=== PATIENT | female | born 1985 | race Caucasian/White ===

== ENCOUNTER 2016-09-21 11:36 | Observation (INO) | payer BC ==
[2016-09-21 12:35] LABS: Appearance,Urine Clear (Clear); Bacteria,Urine Rare /hpf; Bilirubin,Urine Negative (Negative); Glucose,Urine (UA) Negative (Negative); Ketones,Urine Negative (Negative); Leukocyte Esterase,Urine Small (Negative); Nitrite,Urine Negative (Negative); Particle Count 1184; Protein,Urine Negative (Negative); RBC,Urine <1 /hpf (0-5); Specific Gravity,Urine 1.004 (1.001-1.035); Squamous Epithelial Cell,Urine 1 /hpf (0-4); UA Billing (MACRO vs. MICRO) MICRO; Urobilinogen,Urine <2.0 mg/dL (<2.0); WBC,Urine 2 /hpf (0-5)
[2016-09-21] MEDS ORDERED: BETAMET ACET-BETAMETH SOD PHOS 6 MG/ML VIAL IM SCH (13:15)
[2016-09-21] MEDS ORDERED: LACTATED RINGERS 1,000 ML IV ONE (13:30)
[2016-09-21] MEDS ORDERED: LACTATED RINGERS 1,000 ML IV SCH (13:30)
[2016-09-21] MEDS ORDERED: MAGNESIUM SULFATE-WATER PMX 4 GM in WATER FOR INJECTION 50 50ML.BAG IVPB ONE (14:56)
[2016-09-21] MEDS ORDERED: CALCIUM GLUCONATE 100 MG/ML 10 ML VIAL IV ONE (14:56)
[2016-09-21] MEDS ORDERED: MAGNESIUM SULFATE-D5W PMX 1 GM in DEXTROSE/WATER 1 100ML.BAG IVPB SCH (15:00)
[2016-09-21 15:21] LABS: Basophils % (A) 0 %; CH 34.7; CHCM 35.9; Eosinophils # (A) 0.1 k/uL (0-0.7); Eosinophils % (A) 0 %; HCT 38.7 % (34.0-46.0); HDW 2.79; HGB 12.9 gm/dL (11.4-16.0); Luc # (Auto) 0.21; Luc % (Auto) 1; Lymphocytes # (A) 1.5 k/uL (1.0-4.8); Lymphocytes % (A) 10 %; MCH 32.3 pg (25.0-35.0); MCHC 33.2 g/dL (31.0-37.0); MCV 97.3 fL (80.0-100.0); Monocytes # (A) 0.7 k/uL (0-1.0); Monocytes % (A) 5 %; Neutrophils # (A) 12.9 k/uL (1.3-7.7); Neutrophils % (A) 84 %; RBC 3.98 m/uL (3.80-5.40); RDW 13.8 % (11.5-15.5); WBC 15.4 k/uL (3.8-10.6); WBC (Perox) 16.21
[2016-09-21] MEDS: MAGNESIUM SULFATE-WATER PMX 20 GM in WATER FOR INJECTION 1 500ML.BAG IV SCH ×2 (15:27→22:41)
[2016-09-21 16:53] VITALS: BMI 25.2
[2016-09-21] MEDS ORDERED: ACETAMINOPHEN TAB 325 MG TAB PO PRN (22:00)
[2016-09-21] MEDS ORDERED: ONDANSETRON 4 MG/2 ML VIAL IVP STA (22:22)
[2016-09-21] MEDS ORDERED: CLINDAMYCIN 600 MG in DEXTROSE 5% IN WATER 50 ML IVPB STA ×2 (22:29)
[2016-09-21 22:42] VITALS: BP 98/59; PULSE 73; RESP 15; TEMP 96.9
--- NOTE | 2016-09-21 22:48 | P.HPOB ---
History of Present Illness H&P Date: 09/21/16 Chief Complaint: Interim 32 weeks: labor Patient is a 31-year-old at 32 weeks gestation who began having pains in her left side earlier today. At that time she was advised to come up to labor and delivery where she was noted to be macey. Despite oral hydration she continued to contract a fibrin acting was done revealing a positive result. At that point due to her contractions she was given a dose of Celestone to help with his lung maturity and was admitted for observation. A short time later despite hydration she continued to contract contractions were every 2-3 minutes therefore a 4 g bolus of magnesium sulfate was ordered and 2 g per hour was divided as a maintenance dose. 4 about an hour to an hour and half this seemed to diminish the contractions she felt much better and we continue to observe her. However shortly thereafter after she began moving around and she got up and went to the restroom she continued to have contractions again and a began to get stronger we did increase magnesium sulfate to 3 g per hour at that time and can find her to the bed with SCDs. As well as a Avelar catheter for urine output. Her urine output has remained good throughout this process. At approximately 10:15 she reports that she rolled over onto her back and the contractions began to get very severe again every 2 minutes and then they became what she felt was constant just on the left-hand side. I did do another exam she was at this point dilated to 1/2 cm 80% effaced and -1 station. While this is a small change or report was performed with the fact that she is macey so regularly at this point and this is in spite of the fact that her magnesium sulfate was at 3 g an hour we decided to transfer her to [facility]-risk center. In speaking with the doctors at [facility] they've advised at this time to provide antibiotics for GBS prophylaxis but we may discontinue the mag sulfate. Shortly after discontinuing the mag sulfate patient became nauseous and began throwing up at which time I believe she had a vagal episode with her blood pressure dropping to 70s over 50s what she was laid flat and within a minute or 2 of that she began to recover and her blood pressure did come back up into the 100s over 60s. I was at bedside throughout this process. Blow-by O2 was provided as precaution however she was saturating at 100%. heart tones have remained in the 120s. There is some decreased variability secondary to the maybe these implants sulfate. On physical exam her vital signs have been stable and she is afebrile. Her heart has been regular, lungs are clear, extremities without pain. She shows no overt signs of shortness of breath. We have held her fluids to very low volume with a make sulfate although we have given a little bit of increased mouth magnesium sulfate has been discontinued with her blood pressure having dropped. We'll drop that back as well shortly. Assessment interim at 32 weeks: labor. Plan transfer of care to [facility] Past Medical History Past Medical History: Cancer Additional Past Medical History / Comment(s): CONSTIPATION-BM Q 2-3 DAYS, GRANDFATHER COLON CA History of Any Multi-Drug Resistant Organisms: None Reported Additional Past Surgical History / Comment(s): BREAST AUGMENTATION Past Anesthesia/Blood Transfusion Reactions: No Reported Reaction Past Psychological History: No Psychological Hx Reported Smoking Status: Never smoker Past Alcohol Use History: None Reported Past Drug Use History: None Reported - Past Family History Mother Family Medical History: No Reported History Medications and Allergies Home Medications Medication Instructions Recorded Confirmed Type Pnv with Ca,No.72/Iron/FA 1 each PO DAILY 07/13/16 09/21/16 History [ Plus Tablet] Allergies Allergy/AdvReac Type Severity Reaction Status Date / Time fexofenadine HCl Allergy GENERALZED Verified 09/21/16 11:53 [From Sudha] TINGLING latex Allergy Rash/Hives Verified 09/21/16 11:53 loratadine [From Claritin] Allergy GENERALIZED Verified 09/21/16 11:53 TINGLING POSSIBLE AMOXICILLIN Allergy Unknown Uncoded 09/21/16 11:53 Childhood Exam Osteopathic Statement: *. No significant issues noted on an osteopathic structural exam other than those noted in the History and Physical/Consult. - Vital Signs Vital signs: Vital Signs Temp Pulse Resp BP Pulse Ox 09/21/16 22:41 96.9 F L 73 15 98/59 100 09/21/16 20:00 104/65 09/21/16 16:37 98.3 F 84 16 104/63 Intake and Output 09/21/16 09/21/16 09/21/16 06:59 14:59 22:59 Intake Total 1300 Output Total 1450 Balance -150 Intake: Intake, IV Titration 1050 Amount Lactated Ringers 1,000 ml 1000 @ 999 mls/hr IV .Q1H1M ONE Rx#:[id number] Magnesium Sulfate-Water 50 Pmx 4 gm In Water For Injection 50 50ml.bag @ 150 mls/hr IVPB ONCE ONE Rx#:[id number] Oral 250 Output: Urine 1450 Other: # Voids 1 Weight 62.596 kg 62.596 kg Patient Weight 09/22/16 06:59 Weight 62.596 kg - OBG Physical Exam Breast: both: normal (no masses) Abdomen: bowel sounds normal, no diffuse tenderness, no bruit present, no guarding noted, no hepatomegaly, no splenomegaly, no mass Vulva: both: normal Vagina: normal moisture, no discharge Cervix: no lesion, no discharge Uterus: normal size, normal contour Adnexa: both: normal Anus/Rectum: normal perianal skin, no rectal mass, no hemorrhoids, heme negative Results Result Diagrams: 09/21/16 13:35 Abnormal Lab Results - Last 24 Hours (Table) 09/21/16 09/21/16 Range/Units 12:25 13:35 WBC 15.4 H (3.8-10.6) k/uL Neutrophils # 12.9 H (1.3-7.7) k/uL Ur Leukocyte Esterase Small H (Negative) Urine Bacteria Rare H (None) /hpf
== END 2016-09-21 23:50 | disposition short-term general hospital (02) ==
LOC: FBPOP 11:36 → 4FBP 16:26
PROVIDERS: ADMIT Obstetrics & Gynecology; ATTEND Obstetrics & Gynecology
DX: O60.03 Preterm labor without delivery, third trimester (principal); Z3A.32 32 weeks gestation of pregnancy; Z88.8 Allergy status to other drugs, medicaments and biological substances
CPT/HCPCS: 59025; 99215; 96361; 96365; 96372; 84112; 82731; 83735; 85025; 81001; G0378; J0702; J3475 ×2; J2405; 96375

== ENCOUNTER 2016-10-29 11:36 | Outpatient (CLI) | payer BC ==
[2016-10-29 12:26] LABS: Amorphous Sediment,Urine Rare /hpf; Appearance,Urine Cloudy (Clear); Bacteria,Urine Rare /hpf; Bilirubin,Urine Negative (Negative); Glucose,Urine (UA) Negative (Negative); Ketones,Urine Negative (Negative); Leukocyte Esterase,Urine Small (Negative); Mucus,Urine Moderate /hpf; Nitrite,Urine Negative (Negative); PH, Urine 6.5 (5.0-8.0); Particle Count 7058; Protein,Urine 1+ (Negative); RBC,Urine 2 /hpf (0-5); Specific Gravity,Urine 1.016 (1.001-1.035); Squamous Epithelial Cell,Urine 6 /hpf (0-4); UA Billing (MACRO vs. MICRO) MICRO; Urobilinogen,Urine <2.0 mg/dL (<2.0); WBC,Urine 14 /hpf (0-5)
== END 2016-10-29 12:39 | disposition home or self-care (01) ==
LOC: FBPOP 11:36
PROVIDERS: ATTEND Obstetrics & Gynecology
DX: O99.89 Other specified diseases and conditions complicating pregnancy, childbirth and the puerperium (principal); R35.0 Frequency of micturition; R39.15 Urgency of urination; Z3A.37 37 weeks gestation of pregnancy
CPT/HCPCS: 59025; 81001; 87086; 99213

== ENCOUNTER 2016-10-30 11:13 | Outpatient (CLI) | payer BC | END 2016-10-30 12:31 | disposition home or self-care (01) | LOC: FBPOP 11:13 | PROVIDERS: ATTEND Obstetrics & Gynecology | DX: O42.92 Full-term premature rupture of membranes, unspecified as to length of time between rupture and onset of labor (principal); R60.0 Localized edema; Z3A.37 37 weeks gestation of pregnancy | CPT/HCPCS: 59025; 84112; 99213 ==

== ENCOUNTER 2016-11-06 11:22 | Inpatient (IN) | payer BC ==
[2016-11-06] MEDS ORDERED: OXYTOCIN 10 UNIT/ML 1 ML VIAL IM PRN (12:15)
[2016-11-06] MEDS ORDERED: TERBUTALINE 1 MG/ML VIAL SQ PRN (12:15)
[2016-11-06] MEDS ORDERED: LACTATED RINGERS 1,000 ML IV SCH (12:15)
[2016-11-06] MEDS ORDERED: METHYLERGONOVINE 0.2 MG/ML 1 ML AMP IM PRN (12:15)
[2016-11-06] MEDS ORDERED: CARBOPROST TROMETHAMINE 250 MCG/ML 1 ML AMP IM PRN (12:15)
[2016-11-06] MEDS ORDERED: LIDOCAINE 1% (PF) 10 MG/ML (30 ML SDV) SQ PRN (12:15)
[2016-11-06 12:38] LABS: Appearance,Urine Cloudy (Clear); Bilirubin,Urine Negative (Negative); Glucose,Urine (UA) Negative (Negative); Ketones,Urine Negative (Negative); Leukocyte Esterase,Urine Large (Negative); Mucus,Urine Rare /hpf; Nitrite,Urine Negative (Negative); Particle Count 3590; Protein,Urine 1+ (Negative); RBC,Urine 7 /hpf (0-5); Specific Gravity,Urine 1.013 (1.001-1.035); Squamous Epithelial Cell,Urine 7 /hpf (0-4); UA Billing (MACRO vs. MICRO) MICRO; Urobilinogen,Urine <2.0 mg/dL (<2.0); WBC,Urine 43 /hpf (0-5)
[2016-11-06 12:51] VITALS: BMI 29.4
--- NOTE | 2016-11-06 12:55 | P.HPOB ---
History of Present Illness H&P Date: 11/06/16 Chief Complaint: Elevated blood pressure and pain This patient is a pleasant 31-year-old 1 para 0 female estimated date of confinement 11/16/2016 estimated gestational age 38-4/7 weeks gestation who is admitted to labor and delivery with complaints of elevated blood pressure work this morning and also some pelvic pressure. Patient's care is complicated by labor, she was transferred to [facility] at 32 weeks dilated 2 cm dilated with a positive fibronectin. Patient was watched on bed rest until approximately 36 weeks. Patient also has developed some significant lower extremity edema over the last several weeks however her blood pressures have been normal in the office 110-114/60 to 70s. Patient states that this morning at work her first blood pressure was elevated at 130s over 87. She subsequently presented to labor and delivery for evaluation and is found to be in early labor with elevated blood pressure 159/99 and 145/92. Patient's care is also been complicated by marginal cord insertion and she's had normal growth ultrasounds including ultrasounds by maternal medicine. Review of Systems Constitutional: Denies chills, Denies fever Ears, nose, mouth and throat: Denies headache, Denies sore throat Cardiovascular: Denies chest pain, Denies shortness of breath Respiratory: Denies cough Gastrointestinal: Reports heartburn Genitourinary: Reports Menstruation: Reports amenorrhea Musculoskeletal: bilateral: elbow swelling Integumentary: Denies pruritus, Denies rash Neurological: Denies numbness, Denies weakness Psychiatric: Denies anxiety, Denies depression Endocrine: Denies fatigue, Denies weight change Past Medical History Additional Past Medical History / Comment(s): Patient has a history of " floating liver". She also has a history of gross hematuria with a negative evaluation. History of Any Multi-Drug Resistant Organisms: None Reported Additional Past Surgical History / Comment(s): BREAST AUGMENTATION Past Anesthesia/Blood Transfusion Reactions: No Reported Reaction Past Psychological History: No Psychological Hx Reported Smoking Status: Never smoker Past Alcohol Use History: None Reported Past Drug Use History: None Reported - Past Family History Mother Family Medical History: No Reported History Medications and Allergies Home Medications Medication Instructions Recorded Confirmed Type Pnv with Ca,No.72/Iron/FA 1 each PO DAILY 07/13/16 11/06/16 History [ Plus Tablet] Allergies Allergy/AdvReac Type Severity Reaction Status Date / Time fexofenadine HCl Allergy GENERALZED Verified 11/06/16 11:34 [From Sudha] TINGLING latex Allergy Rash/Hives Verified 11/06/16 11:34 loratadine [From Claritin] Allergy GENERALIZED Verified 11/06/16 11:34 TINGLING POSSIBLE AMOXICILLIN Allergy Unknown Uncoded 11/06/16 11:34 Childhood Exam - Vital Signs Vital signs: Intake and Output 11/05/16 11/06/16 11/06/16 22:59 06:59 14:59 Other: Weight 73.028 kg Patient Weight 11/07/16 06:59 Weight 73.028 kg - OBG Physical Exam Abdomen: bowel sounds normal, no diffuse tenderness, no bruit present, no guarding noted, no hepatomegaly, no splenomegaly, no mass Vulva: both: normal Vagina: normal moisture Cervix: Cervix is 3 cm dilated and 90% effaced with bloody show. Uterus: normal size (Fundal height is 38 cm.) Results Patient's blood work shows she is a positive, rubella immune, RPR nonreactive, HIV nonreactive, hepatitis B negative, group B strep was negative: Was normal, growth ultrasounds have been normal. Ultrasound at [facility] showed marginal cord insertion. Abnormal Lab Results - Last 24 Hours (Table) 11/06/16 Range/Units 12:11 Urine Appearance Cloudy H (Clear) Urine Protein 1+ H (Negative) Urine Blood Small H (Negative) Ur Leukocyte Esterase Large H (Negative) Urine RBC 7 H (0-5) /hpf Urine WBC 43 H (0-5) /hpf Ur Squamous Epith Cells 7 H (0-4) /hpf Urine Mucus Rare H (None) /hpf Assessment and Plan (1) Third trimester Narrative/Plan: This is a pleasant 31-year-old 1 para 0 female 38-4/7 weeks gestation with active labor. Patient also has blood pressure elevations consistent with gestational hypertension and I'm going to do blood work to rule out preeclampsia. Plan at this time is to proceed with artificial rupture membranes and anticipate vaginal delivery. Status: Acute (2) Normal labor Status: Acute (3) Gestational hypertension Status: Acute
[2016-11-06 13:46] LABS: ALT 33 U/L (9-52); AST 28 U/L (14-36); Blood Urea Nitrogen 9 mg/dL (7-17); INR 0.9 (<1.1); LDH 557 U/L (313-618); Non-African American GFR(MDRD) >60 (>60 ml/min/1.73 sqM); Partial Thromboplastin Time 22.7 sec (22.0-30.0); Prothrombin Time 9.5 sec (9.0-12.0); Uric Acid 4.9 mg/dL (3.7-7.4)
[2016-11-06 13:49] LABS: Basophils % (A) 0 %; CH 34.8; CHCM 36.5; Eosinophils % (A) 0 %; HCT 35.3 % (34.0-46.0); HDW 2.78; HGB 12.3 gm/dL (11.4-16.0); Luc # (Auto) 0.26; Luc % (Auto) 2; Lymphocytes # (A) 1.7 k/uL (1.0-4.8); Lymphocytes % (A) 15 %; MCH 33.3 pg (25.0-35.0); MCHC 34.8 g/dL (31.0-37.0); MCV 95.8 fL (80.0-100.0); Mean Platelet Volume 7.3; Monocytes # (A) 0.4 k/uL (0-1.0); Monocytes % (A) 4 %; Neutrophils # (A) 8.8 k/uL (1.3-7.7); Neutrophils % (A) 78 %; RBC 3.68 m/uL (3.80-5.40); RDW 14.6 % (11.5-15.5); WBC 11.3 k/uL (3.8-10.6); WBC (Perox) 12.33
[2016-11-06] MEDS: OXYTOCIN 30 UNITS/500 ML NS 30 UNIT in SALINE 1 500ML.BAG IV SCH ×2 (14:35→18:42)
[2016-11-06] MEDS ORDERED: Acetaminophen-Codeine 300-30mg TAB PO PRN ×2 (15:23)
[2016-11-06] MEDS ORDERED: diphenhydrAMINE 25 MG CAP PO PRN (15:23)
[2016-11-06] MEDS ORDERED: SIMETHICONE 80 MG CHEWABLE PO PRN (15:23)
[2016-11-06] MEDS ORDERED: diphenhydrAMINE 50 MG/ML 1 ML VIAL IVP PRN (15:23)
[2016-11-06] MEDS ORDERED: WITCH HAZEL 1 EACH MED..PAD TOPICAL PRN (15:23)
[2016-11-06] MEDS ORDERED: HYDROCORTISONE 2.5% RECTAL CREAM 30 GM TUBE RECTAL PRN (15:23)
[2016-11-06] MEDS ORDERED: ACETAMINOPHEN TAB 325 MG TAB PO PRN (15:23)
[2016-11-06] MEDS ORDERED: ZOLPIDEM 5 MG TAB PO PRN (15:23)
[2016-11-06] MEDS ORDERED: BENZOCAINE/MENTHOL SPRAY 1 GM/SPRAY AEROSOL TOPICAL PRN (15:23)
[2016-11-06] MEDS ORDERED: BISACODYL 10 MG SUPP RECTAL PRN (15:23)
[2016-11-06] MEDS ORDERED: LANOLIN CREAM 5 GM TUBE TOPICAL PRN (15:23)
[2016-11-06] MEDS: IBUPROFEN 600 MG TAB PO PRN ×2 (15:44→22:18)
[2016-11-06 16:16] LABS: Basophils % (A) 0 %; CH 34.6; CHCM 36.3; Eosinophils % (A) 0 %; HCT 28.6 % (34.0-46.0); HDW 2.77; HGB 10.1 gm/dL (11.4-16.0); Luc # (Auto) 0.13; Luc % (Auto) 1; Lymphocytes # (A) 1.1 k/uL (1.0-4.8); Lymphocytes % (A) 4 %; MCH 33.9 pg (25.0-35.0); MCHC 35.4 g/dL (31.0-37.0); MCV 95.9 fL (80.0-100.0); Mean Platelet Volume 7.1; Monocytes # (A) 0.8 k/uL (0-1.0); Monocytes % (A) 3 %; Neutrophils # (A) 22.3 k/uL (1.3-7.7); Neutrophils % (A) 92 %; RBC 2.99 m/uL (3.80-5.40); RDW 14.6 % (11.5-15.5); WBC 24.3 k/uL (3.8-10.6); WBC (Perox) 24.84
--- NOTE | 2016-11-06 16:32 | P.PROBDLV ---
Vaginal Delivery Note - . Vaginal Delivery Note: Normal spontaneous vaginal delivery viable male Apgars are 7 and 9 delivery time is 1429 hrs. Please see dictated H&P for intimate details of this patient's admission. In brief summary this is a pleasant 31-year-old 1 para 0 female 38-4/7 weeks gestation who is admitted to labor and complaints of elevated blood pressure and pressure patient's cervix is 4 summary is dilated thought to be in active labor and preeclampsia evaluation is negative. Blood pressures do come down to 140s over 80s. Patient has artificial rupture membranes for clear fluid. Patient does request an epidural but at that time is checked and found to be completely dilated. She pushes approximately 2 or 3 times pushes the head to the perineum. The posterior perineum was opened 1% lidocaine and a second-degree midline episiotomy is made. We then have controlled delivery of the infant's head over the perineum. Mouth and nares are bulb suctioned and there is no evidence of a nuchal cord. With gentle downward traction we then have delivery the anterior shoulder and posterior shoulder and rest this infant' s body. This is a vigorous viable male Apgars are 7 and 9 and delivery time is 1429 hrs. After delivery of the infant the umbilical cord is doubly clamped and cut. It appears to be trivascular. The placenta is spontaneously delivered intact. Patient does have some brisk bleeding at this time and I do uterine massage give her Pitocin. Estimated blood loss at the time of delivery is approximately 250 mL. She does continue to bleed somewhat and I continue uterine massage. There is no evidence of any cervical or vaginal lacerations. There is a second-degree midline laceration that is repaired with 3-0 Vicryl in the usual fashion good reapproximation is noted. All counts are correct 3. Infant and mother are stable in delivery room.
[2016-11-06] MEDS: SENNOSIDES-DOCUSATE SODIUM 1 EACH TAB PO SCH (21:24)
[2016-11-07] MEDS: IBUPROFEN 600 MG TAB PO PRN ×4 (04:01→22:34)
[2016-11-07 05:44] LABS: Basophils % (A) 0 %; CH 34.2; CHCM 35.8; Eosinophils # (A) 0.1 k/uL (0-0.7); Eosinophils % (A) 0 %; HCT 22.5 % (34.0-46.0); HDW 2.88; Luc # (Auto) 0.26; Luc % (Auto) 2; Lymphocytes # (A) 2.1 k/uL (1.0-4.8); Lymphocytes % (A) 16 %; MCH 32.2 pg (25.0-35.0); MCHC 33.5 g/dL (31.0-37.0); MCV 96.4 fL (80.0-100.0); Mean Platelet Volume 8.4; Monocytes # (A) 0.8 k/uL (0-1.0); Monocytes % (A) 6 %; Neutrophils # (A) 9.7 k/uL (1.3-7.7); Neutrophils % (A) 75 %; RBC 2.33 m/uL (3.80-5.40); RDW 14.8 % (11.5-15.5); WBC 12.9 k/uL (3.8-10.6); WBC (Perox) 13.03
[2016-11-07 05:47] LABS: HGB 7.5 gm/dL (11.4-16.0)
--- NOTE | 2016-11-07 05:52 | P.PNOBGVD ---
Subjective - Subjective Patient reports: Reports appetite normal, Reports voiding normally, Reports pain well controlled, Reports ambulating normally : doing well Objective - Latest Vital Signs Latest vital signs: Vital Signs Temp Pulse Resp BP Pulse Ox 11/07/16 00:00 98.1 F 93 15 121/74 98 11/06/16 20:00 98 F 90 15 112/75 99 11/06/16 16:45 97.4 F L 98 16 129/75 11/06/16 16:11 86 15 153/67 11/06/16 15:45 109 H 18 128/67 11/06/16 15:30 109 H 16 123/73 11/06/16 15:17 96.8 F L 73 16 126/70 11/06/16 15:16 86 16 175/86 11/06/16 14:45 74 16 153/70 11/06/16 12:24 97.8 F 68 16 159/99 Intake and Output 11/06/16 11/06/16 11/07/16 14:59 22:59 06:59 Intake Total 110 Balance 110 Intake: Intake, IV Titration 110 Amount Oxytocin 30 Units/500 ml 110 Ns 30 unit In Saline 1 500ml.bag @ 120 MILLIUNIT /MIN 120 mls/hr IV . Q4H10M [facility] Rx#:[id number] Other: # Voids 1 Weight 73.028 kg Patient Weight 11/07/16 06:59 Weight 73.028 kg - Exam Lungs: bilateral: normal Chest: Normal S1, Normal S2 Extremities: Present: normal Abdomen: Present: normal appearance, soft Uterus: Present: normal, firm - Labs Labs: Abnormal Lab Results - Last 24 Hours (Table) 11/06/16 11/06/16 11/06/16 Range/Units 12:11 13:18 15:57 WBC 11.3 H 24.3 H (3.8-10.6) k/uL RBC 3.68 L 2.99 L (3.80-5.40) m/uL Hgb 10.1 L (11.4-16.0) gm/dL Hct 28.6 L (34.0-46.0) % Neutrophils # 8.8 H 22.3 H (1.3-7.7) k/uL Urine Appearance Cloudy H (Clear) Urine Protein 1+ H (Negative) Urine Blood Small H (Negative) Ur Leukocyte Esterase Large H (Negative) Urine RBC 7 H (0-5) /hpf Urine WBC 43 H (0-5) /hpf Ur Squamous Epith Cells 7 H (0-4) /hpf Urine Mucus Rare H (None) /hpf 11/07/16 Range/Units 05:25 WBC 12.9 H (3.8-10.6) k/uL RBC 2.33 L (3.80-5.40) m/uL Hgb 7.5 L D (11.4-16.0) gm/dL Hct 22.5 L (34.0-46.0) % Neutrophils # 9.7 H (1.3-7.7) k/uL Urine Appearance (Clear) Urine Protein (Negative) Urine Blood (Negative) Ur Leukocyte Esterase (Negative) Urine RBC (0-5) /hpf Urine WBC (0-5) /hpf Ur Squamous Epith Cells (0-4) /hpf Urine Mucus (None) /hpf Assessment and Plan (1) Third trimester Narrative/Plan: Post day #1. Patient is resting without complaints. Vital signs are stable she is afebrile. Uterus is firm nontender she's had normal lochia throughout the night. She did have an episode of bleeding immediately responded to uterine massage and IV Pitocin. Hemoglobin this morning is 7.5 which is expected. My impression this is a normal course with secondary anemia due to blood loss which is now resolved. Plan is to continue routine care begin iron therapy. Current Visit: Yes Status: Acute Code(s): Z33.1 - STATE, INCIDENTAL SNOMED Code(s): 23203271 (2) Normal labor Current Visit: Yes Status: Acute Code(s): O80 - ENCOUNTER FOR FULL-TERM UNCOMPLICATED DELIVERY; Z37.9 - OUTCOME OF DELIVERY, UNSPECIFIED SNOMED Code(s ): 57359138 (3) Gestational hypertension Current Visit: Yes Status: Acute Code(s): O13.9 - GESTATIONAL HTN W/O SIGNIFICANT PROTEINURIA, UNSP TRIMESTER SNOMED Code(s): 76978442
[2016-11-07 08:19] VITALS: RESP 16
[2016-11-07] MEDS: IRON AG/C/B12/CA/SUC.ACID/STOM 1 EACH TAB PO SCH (08:20)
[2016-11-07] MEDS: SENNOSIDES-DOCUSATE SODIUM 1 EACH TAB PO SCH ×2 (08:21→20:52)
--- NOTE | 2016-11-08 05:28 | P.PNOBGVD ---
Subjective - Subjective Patient reports: Reports appetite normal, Reports voiding normally, Reports pain well controlled, Reports ambulating normally : doing well Objective - Latest Vital Signs Latest vital signs: Vital Signs Temp Pulse Resp BP Pulse Ox 11/08/16 00:00 98.6 F 88 16 113/76 97 11/07/16 16:00 98.4 F 83 16 118/84 11/07/16 08:17 98.1 F 81 16 117/77 Intake and Output 11/07/16 11/07/16 11/08/16 14:59 22:59 06:59 Other: # Voids 1 - Exam Lungs: bilateral: normal Chest: Normal S1, Normal S2 Extremities: Present: normal Abdomen: Present: normal appearance, soft Uterus: Present: normal, firm - Labs Labs: Abnormal Lab Results - Last 24 Hours (Table) 11/07/16 Range/Units 05:25 WBC 12.9 H (3.8-10.6) k/uL RBC 2.33 L (3.80-5.40) m/uL Hgb 7.5 L D (11.4-16.0) gm/dL Hct 22.5 L (34.0-46.0) % Neutrophils # 9.7 H (1.3-7.7) k/uL Assessment and Plan (1) Third trimester Narrative/Plan: day #2. Patient is resting without new complaints. Vital signs are stable she' s afebrile. Uterus is firm nontender and she continues to have normal lochia. Hemoglobin yesterday was 7.5. My impression this is a normal course. Patient has significant anemia secondary to blood loss at delivery however this has resolved and vital signs are stable. Patient this point is ambulating and urinating without difficulty is felt to be stable for discharge home. Plan will be to discharge home today. Current Visit: Yes Status: Acute Code(s): Z33.1 - STATE, INCIDENTAL SNOMED Code(s): 12647234 (2) Normal labor Current Visit: Yes Status: Acute Code(s): O80 - ENCOUNTER FOR FULL-TERM UNCOMPLICATED DELIVERY; Z37.9 - OUTCOME OF DELIVERY, UNSPECIFIED SNOMED Code(s ): 06805134 (3) Gestational hypertension Current Visit: Yes Status: Acute Code(s): O13.9 - GESTATIONAL HTN W/O SIGNIFICANT PROTEINURIA, UNSP TRIMESTER SNOMED Code(s): 27518514
--- NOTE | 2016-11-08 05:32 | P.DS ---
Providers Date of admission: 11/06/16 12:09 Expected date of discharge: 11/08/16 Attending physician: Andrea Meyer - Discharge Diagnosis(es) (1) Third trimester Current Visit: Yes Status: Acute (2) Normal labor Current Visit: Yes Status: Acute (3) Gestational hypertension Current Visit: Yes Status: Acute Hospital Course: Please see dictated H&P for intimate details of this patient's admission. Brief summary this is a pleasant 31-year-old 1 para 0 female 38-4/7 weeks gestation admitted to labor and delivery with elevated blood pressures in labor. Patient's preeclampsia evaluation was negative. She quickly went on to have a vaginal delivery viable male . Patient did have bleeding that resolved with IV Pitocin. Please see dictation. Patient's hemoglobin was 7.5. She was however stable and ambulating and urinating without difficulty and felt to be stable for discharge home on day #2. Patient will see me in 6 weeks. Did give her strict instructions on what to call for. Patient Condition at Discharge: Good Plan - Discharge Summary New Discharge Prescriptions: Acetaminophen-Codeine 300-30mg [Tylenol w/codeine #3] 1 - 2 each PO Q4HR PRN # 30 tab PRN Reason: Mild Pain exceeding Tylenol Ibuprofen [Motrin] 600 mg PO Q6HR PRN #40 tab PRN Reason: Mild Pain Or Fever >= 100.5 Iron Ag/C/B12/Ca/Suc.acid/Stom [Chromagen LF] 1 each PO DAILY #30 tab Discharge Medication List Pnv with Ca,No.72/Iron/FA [ Plus Tablet] 1 each PO DAILY 07/13/16 [ History] Acetaminophen-Codeine 300-30mg [Tylenol w/codeine #3] 1 - 2 each PO Q4HR PRN # 30 tab 11/08/16 [Rx] Ibuprofen [Motrin] 600 mg PO Q6HR PRN #40 tab 11/08/16 [Rx] Iron Ag/C/B12/Ca/Suc.acid/Stom [Chromagen LF] 1 each PO DAILY #30 tab 11/08/16 [ Rx] Follow up Appointment(s)/Referral(s): Andrea Meyer MD [STAFF PHYSICIAN] - 12/23/16 9:15 am Patient Instructions/Handouts: Vaginal Delivery (DC), Iron Deficiency Anemia ( DC) Activity/Diet/Wound Care/Special Instructions: No intercourse or anything per vagina for 6 weeks. Please call if any fever, chills, excessive vaginal bleeding, and/or abdominal pain. Discharge Disposition: HOME SELF-CARE
[2016-11-08 08:00] VITALS: BP 118/60; PULSE 75; TEMP 97.8
[2016-11-08] MEDS: SENNOSIDES-DOCUSATE SODIUM 1 EACH TAB PO SCH (08:02)
[2016-11-08] MEDS: IBUPROFEN 600 MG TAB PO PRN (11:30)
[2016-11-08] MEDS: IRON AG/C/B12/CA/SUC.ACID/STOM 1 EACH TAB PO SCH (11:52)
== END 2016-11-08 12:00 | disposition home or self-care (01) | DRG 774 ==
LOC: FBPOP 11:22 → 4FBP 12:09
PROVIDERS: ADMIT Obstetrics & Gynecology; ATTEND Obstetrics & Gynecology
PROC: 10E0XZZ Delivery of Products of Conception, External Approach (ICD-10-PCS; principal; 2016-11-06)
PROC: 0KQM0ZZ Repair Perineum Muscle, Open Approach (ICD-10-PCS; 2016-11-06)
PROC: 10907ZC Drainage of Amniotic Fluid, Therapeutic from Products of Conception, Via Natural or Artificial Opening (ICD-10-PCS; 2016-11-06)
DX: O70.1 Second degree perineal laceration during delivery (principal); O72.1 Other immediate postpartum hemorrhage; Z37.0 Single live birth; O13.4 Gestational [pregnancy-induced] hypertension without significant proteinuria, complicating childbirth; D50.0 Iron deficiency anemia secondary to blood loss (chronic); O99.02 Anemia complicating childbirth; O43.123 Velamentous insertion of umbilical cord, third trimester; Z3A.38 38 weeks gestation of pregnancy; Z88.0 Allergy status to penicillin; Z88.8 Allergy status to other drugs, medicaments and biological substances; Z87.19 Personal history of other diseases of the digestive system; Z87.448 Personal history of other diseases of urinary system; Z91.040 Latex allergy status
CPT/HCPCS: 59025; 81001; 82565; 83615; 84450; 84460; 84520; 84550; 85025; 85384; 85610; 85730; 88307; 99213

== ENCOUNTER → 2017-02-27 | Outpatient (CLI) | payer BC ==
--- NOTE | 2017-02-27 08:04 | US ---
EXAMINATION TYPE: US abdomen complete DATE OF EXAM: 02/27/2017 COMPARISON: CLINICAL HISTORY: R10.13 Epigastric pain. RUQ pain, 4 months - vaginal delivery EXAM MEASUREMENTS: Liver Length: 13.9 cm Gallbladder Wall: 0.1 cm CHD: 0.3 cm Spleen: 9.5 cm Right Kidney: 10.5 x 4.4 x 3.0 cm Left Kidney: 10.5 x 5.5 x 5.8 cm Pancreas: wnl, main pancreatic duct = 1.3 mm Liver: wnl Gallbladder: wnl Evidence for sonographic Interiano's sign: neg CHD: wnl Spleen: wnl Right Kidney: wnl Left Kidney: prominent pyramids Upper IVC: seen Abd Aorta: seen The liver is homogenous. The intrahepatic portion of the IVC and proximal abdominal aorta are within normal limits. There is no evidence of cholelithiasis. Common bile duct is unremarkable. The visu alized portions of the pancreas are homogenous. The spleen is unremarkable. Kidneys are symmetric a nd free of hydronephrosis. No renal lesions are seen. IMPRESSION: 1. No definite acute process.
--- NOTE | 2017-02-27 08:44 | FL ---
EXAMINATION TYPE: PR UGI DATE OF EXAM: 02/27/2017 COMPARISON: NONE HISTORY: Epigastric pain TECHNIQUE: A double contrast UGI study is performed. FINDINGS: [employer] image of the abdomen shows no gross abnormality. The esophagus shows normal motility and emptying into the stomach. No evidence of hiatal hernia or s tricture noted. The stomach shows normal distensibility, peristalsis, and mucosal folds. No evidence of any mass or ulcer disease. No significant gastroesophageal reflux was seen during real time performance of this study. The duodenal bulb, sweep, and proximal small bowel loops are unremarkable. IMPRESSION: Normal upper GI study.
== END | disposition home or self-care (01) ==
LOC: RADUSWWP 07:05
PROVIDERS: ATTEND Family Medicine
DX: R10.13 Epigastric pain (principal); R10.11 Right upper quadrant pain
CPT/HCPCS: 74240; 76700

== ENCOUNTER → 2018-05-22 | Outpatient (CLI) | payer BC ==
--- NOTE | 2018-05-22 16:51 | US ---
EXAMINATION TYPE: US bladder DATE OF EXAM: 05/22/2018 COMPARISON: NONE CLINICAL HISTORY: R35.0 frequency of micturition. EXAM MEASUREMENTS: Post Void Residual Volume: 16.45 mL Color Doppler performed to assess ureteral jets. Bilateral Jets seen: Yes Normal Post Void Residual (less than 50ml): Yes IMPRESSION: Urinary bladder is sonolucent. There are bilateral ureteral jets. Small post void residu al volume.
== END | disposition home or self-care (01) ==
LOC: RADUSWWP 16:12
PROVIDERS: ATTEND Family Medicine
DX: R39.198 Other difficulties with micturition (principal)
CPT/HCPCS: 76857

== ENCOUNTER → 2018-06-01 | Outpatient (CLI) | payer BC ==
--- NOTE | 2018-06-02 00:23 | CT ---
EXAMINATION TYPE: CT abdomen pelvis wo/w con DATE OF EXAM: 06/01/2018 COMPARISON: 09/02/2011 HISTORY: 33-year-old female Generalized pain with nausea TECHNIQUE: Contiguous axial scanning of the abdomen and pelvis before and after administration of 100 ml Isovue 300 IV contrast. Delayed images through the kidneys and coronal/sagittal reconstructions performed. CT DLP: 1624 mGycm Automated exposure control for dose reduction was used. FINDINGS: Heart normal size without pericardial effusion. Lung bases clear without pleural effusion. Minimal no dular subpleural atelectasis or other nonspecific nodularity at the left base is unchanged from 2010 compatible with a benign etiology. No pleural effusion. No focal liver lesion or biliary ductal dilatation. Portal venous system is patent. Gallbladder, adrenal glands, left kidney, spleen with a small anterior splenule, and pancreas appear within normal limits. Right kidney is malrotated. No dilated small bowel, free fluid, or free air. No mesenteric or retroperitoneal lymphadenopathy angelica ntified. Portions of a normal caliber appendix are visualized. Scattered mild stool burden. No pericolonic inf lammatory change. Some mildly prominent fluid-filled small bowel loops in the right adnexa with a crenulated, periphera lly enhancing lesion measuring 1.2 cm an additional peripherally enhancing 1.6 cm lesion involving th e left ovary. Trace cul-de-sac free fluid likely physiologic. No pelvic lymphadenopathy or otherwise any abnormal fluid collection seen in the pelvis. Uterus is visualized. Both ovaries are present. Adrián dder is nondistended. Bones: Mild degenerative disc disease L4-L5 and L5-S1. No osseous destructive process. IMPRESSION: 1. A 1.2 cm crenulated, peripherally enhancing lesion involving the right ovary suggests a recently r uptured follicle. Trace cul-de-sac free fluid likely physiologic. 2. An additional 1.6 cm peripherally enhancing cystic lesion in the left ovary could represent a func tional cyst. 3. Incidental malrotated right kidney.
== END ==
LOC: RADCTMAIN 17:55
PROVIDERS: ATTEND Family Medicine
DX: N83.202 Unspecified ovarian cyst, left side (principal); N83.8 Other noninflammatory disorders of ovary, fallopian tube and broad ligament
CPT/HCPCS: 74178; Q9967

== ENCOUNTER 2020-06-23 05:57 | Day surgery (SDC) | payer BC ==
[2020-06-20 14:49] VITALS: BMI 24.1
--- NOTE | 2020-06-22 12:55 | P.HPOB ---
History of Present Illness H&P Date: 06/22/20 Chief Complaint: High grade ectocervical dysplasia This patient is a pleasant 35 yr female who has been followed for LGSIL, but most recent colposcopy biopsy (1 oclock) "cannot rule out" HGSIL. ECC was negative. I discussed options with Priscilla (cryo vs. LEEP) and she requests LEEP excision of this area. Past Medical History Additional Past Medical History / Comment(s): Patient has a history of "floating kidney". History of hematuria with negative evaluation History of Any Multi-Drug Resistant Organisms: None Reported Past Surgical History: Breast Surgery Additional Past Surgical History / Comment(s): BREAST AUGMENTATION Past Anesthesia/Blood Transfusion Reactions: No Reported Reaction Smoking Status: Never smoker - Past Family History Mother Family Medical History: No Reported History Additional Family Medical History / Comment(s): cousin and aunt Medications and Allergies Home Medications Medication Instructions Recorded Confirmed Type Immuneti Supplement 1 tab PO DAILY 06/20/20 06/20/20 History L.acidoph,Paracasei, B.lactis 1 each PO DAILY 06/20/20 06/20/20 History [Probiotic] Allergies Allergy/AdvReac Type Severity Reaction Status Date / Time fexofenadine HCl Allergy GENERALZED Verified 06/20/20 14:40 [From Sudha] TINGLING latex Allergy Rash/Hives Verified 06/20/20 14:40 loratadine [From Claritin] Allergy GENERALIZED Verified 06/20/20 14:40 TINGLING Exam - OBG Physical Exam Abdomen: bowel sounds normal, no diffuse tenderness, no bruit present, no guarding noted, no hepatomegaly, no splenomegaly, no mass Vulva: both: normal Vagina: normal moisture, no discharge Cervix: no lesion, no discharge Uterus: normal size, normal contour Results Cervical biopsy on 05/15/2020 at 1 oclock could not rule out HGSIL Assessment and Plan Assessment: This is a pleasant 35 yr female with colposcopy biopsy of the ectocervix that cannot rule out HGSIL. Plan is LEEP excision of the ecto and endocervix with colposcopy. I have had a long discussion with Priscilla in regards to this surgery and risks: infection, bleeding, possible cervical incompetence and future loss. I have also discussed the possibility of negative pathology findings. All of her questions were answered and a written consent obtained. 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
[~2020-06-23 05:57] MED LIST: DEXAMETHASONE SOD PHOSPHATE 10 MG/ML 1 ML VIAL IV ONE; HYDROmorphone 0.5 MG/0.5 ML SYRINGE IVP PRN; LACTATED RINGERS 1,000 ML IV SCH; LIDOCAINE 1% (10MG/ML) FOR IV START INTRADERMA PRN; ONDANSETRON 4 MG/2 ML VIAL IVP ONE; Pre Op ABX Message 1 EACH MISC MISCELLANE ONE; SCOPOLAMINE 1.5MG/72HR PATCH TRANSDERM ONE
[2020-06-23] MEDS ORDERED: fentaNYL (PF) 50 MCG/ML 2 ML AMP ONE (06:53)
[2020-06-23] MEDS ORDERED: MIDAZOLAM 2 MG/2 ML VIAL ONE (06:53)
[2020-06-23] MEDS ORDERED: ePHEDrine SULFATE/0.9% NACL/PF 50 MG/5 ML SYRINGE IV ONE (06:53)
[2020-06-23] MEDS ORDERED: LIDOCAINE 1% INJ 10MG/ML (20 ML MDV) ONE (06:53)
[2020-06-23] MEDS ORDERED: PROPOFOL 10 MG/ML 20 ML VIAL IV ONE (06:53)
[2020-06-23] MEDS ORDERED: FERRIC SUBSULFATE (MONSELS) JAR TOPICAL ONE (07:11)
[2020-06-23] MEDS ORDERED: IODINE/POTASS IOD (LUGOLS) BOTTLE TOPICAL ONE (07:12)
--- NOTE | 2020-06-23 07:35 | P.OP ---
Date of Procedure: 06/23/20 Preoperative Diagnosis: High-grade ectocervical dysplasia Postoperative Diagnosis: Same Procedure(s) Performed: #1: Colposcopy. #2: LEEP excision of the ectocervix and endocervix. Anesthesia: MAC Surgeon: Andrea Meyer Estimated Blood Loss (ml): 25 Urine output (ml): 10 Pathology: other (Ectocervix and endocervix) Condition: stable Disposition: PACU Indications for Procedure: Please see dictated H&P for intimate details of this patient's admission. Brief summary is a pleasant 35-year-old female with colposcopy biopsy that could not rule out high-grade changes. Patient I discussed freezing this area with cryosurgery versus LEEP excision and she has elected proceed with LEEP excision. Patient and I have discussed this procedure and risks including risks of infection, bleeding, possible cervical incompetence in future loss. All the patient's questions are answered written consent is obtained. Operative Findings: This patient had a grossly appearing normal cervix Description of Procedure: This patient is taken to the operating room where she is laid in the supine position. She subsequently undergoes general mask anesthesia without incident. With an adequate level of anesthesia she's placed in dorsal lithotomy position. She has a vaginal perineal prep and drape. Bladder is drained at this time for 10 mL of concentrated urine. I then place a laser speculum into the vagina. Colposcopy is performed in the area of abnormality is demarcated. Using a large LEEP loop with a cutting/cautery setting of 60/70, I make 1 pass and remove the entire transformation zone of the ectocervix. Using a small LEEP loop I then excised a small portion of the endocervix. With this done using Bovie tip I cauterize the entire endocervical and ectocervical bed and margins. Excellent hemostasis is noted. I did place some Monsel solution for added hemostasis. After prolonged observation there is no evidence of any bleeding and the procedure was ended. The speculum is removed. All counts are correct 3. There is no complications. Patient was awakened from anesthesia and taken to recovery room in satisfactory condition.
[2020-06-23 07:47] VITALS: TEMP 97.9
[2020-06-23 07:53] VITALS: RESP 16
[2020-06-23] MEDS ORDERED: KETOROLAC 15 MG/ML 1 ML VIAL IVP ONE (08:07)
[2020-06-23] MEDS ORDERED: LACTATED RINGERS 1,000 ML IV ONE ×2 (08:23)
[2020-06-23 09:02] VITALS: BP 95/60; PULSE 69
== END 2020-06-23 09:22 | disposition home or self-care (01) ==
LOC: OR 05:57
PROVIDERS: ATTEND Obstetrics & Gynecology
DX: N87.0 Mild cervical dysplasia (principal); K21.9 Gastro-esophageal reflux disease without esophagitis; N28.89 Other specified disorders of kidney and ureter; Z98.890 Other specified postprocedural states; Z88.8 Allergy status to other drugs, medicaments and biological substances; Z91.040 Latex allergy status
CPT/HCPCS: 81025; 88307; 57461; J2250; J1100; J2405; J2001; J3010; J1885; J2704; J1170; 88305

== ENCOUNTER → 2021-01-29 | Outpatient (CLI) | payer BC ==
--- NOTE | 2021-01-29 14:37 | US ---
EXAMINATION TYPE: US venous doppler duplex LE LT DATE OF EXAM: 01/29/2021 2:14 PM COMPARISON: NONE CLINICAL HISTORY: [id number] Pain of left calf. SIDE PERFORMED: Left TECHNIQUE: The lower extremity deep venous system is examined utilizing real time linear array sonog sundeep with graded compression, doppler sonography and color-flow sonography. VESSELS IMAGED: Common Femoral Vein Deep Femoral Vein Greater Saphenous Vein * Femoral Vein Popliteal Vein Small Saphenous Vein * Proximal Calf Veins (* superficial vessels) Left Leg: Negative for DVT Grayscale, color doppler, spectral doppler imaging performed of the deep veins of the left lower extr emity. There is normal flow, compressibility, vascular waveforms. IMPRESSION: No ultrasound evidence for acute DVT in the left lower extremity.
== END | disposition home or self-care (01) ==
LOC: RADUSWWP 13:33
PROVIDERS: ATTEND Family Medicine
DX: M79.662 Pain in left lower leg (principal)

== ENCOUNTER → 2022-05-29 | Outpatient (CLI) | payer BC ==
--- NOTE | 2022-05-29 11:44 | XR ---
EXAMINATION TYPE: XR chest 2V DATE OF EXAM: 05/29/2022 COMPARISON: NONE TECHNIQUE: PA and lateral views submitted. HISTORY: Cough FINDINGS: The lungs are clear and there is no pneumothorax, pleural effusion, or focal pneumonia. Heart size normal. No overt failure. Mild hyperinflation correlate for asthma or COPD. IMPRESSION: 1. No acute process.
--- NOTE | 2022-05-29 12:12 | CT ---
EXAMINATION TYPE: CT sinus wo con DATE OF EXAM: 05/29/2022 COMPARISON: None HISTORY: Chronic sinusitis CT DLP: 699 mGycm CONTRAST: 0 mL of Isovue 300 The paranasal sinuses are examined in the axial plane at 2 mm thick sections. Reconstructed images i n the coronal plane were obtained. Maxillary spine appears intact. Mucosal thickening is within the left maxillary sinus. Small air-fluid level may be present. Clinical correlation for acute left maxillary sinusitis is recommended. The ethmoid air cells are clear. Th e sphenoid sinuses are clear. The frontal sinuses are clear. The septum is evaluated. There is septal deviation to the left. The ostiomeatal units are patent. Justin air cells are present. IMPRESSIONS: 1. Clinical correlation recommended for acute left maxillary sinusitis.
--- NOTE | 2022-05-29 12:17 | FL ---
EXAMINATION TYPE: FL barium swallow DATE OF EXAM: 05/29/2022 11:27 AM COMPARISON: CLINICAL INDICATION:Female, 37 years old with history of J32.9 chronic sinusitis, R13.10 dysphagia; TECHNIQUE: The procedure was explained and patient history elicited. All patient questions were ans wered prior to start of procedure. Multiple spot fluoroscopic images of the esophagus were obtained a fter the oral ingestion of effervescent crystals and liquid barium as the contrast agent. A felt hanger ra diograph of the chest was obtained and reviewed. Fluoroscopic time: 3 minutes and seconds images: 163 FINDINGS: The esophagus demonstrates normal primary and secondary peristalsis. The esophageal mucosa is smooth without evidence of focal stricture, ulceration, or abnormal outpouching. No gastroesophageal reflu x disease was identified. There is minimal delayed emptying of the esophagus throughout the exam which cleared with subsequent swallow. Minor retention within the piriform sinuses noted. IMPRESSION: 1. Minimal esophageal retention of contrast which cleared with subsequent swallows. 2. Minimal pyriform sinus retention of contrast. 3. No evidence of gastroesophageal reflux however this exam is has low sensitivity for reflux.
== END | disposition home or self-care (01) ==
LOC: RADUSWWP 09:56
PROVIDERS: ATTEND Otolaryngology
DX: J32.9 Chronic sinusitis, unspecified (principal); R13.10 Dysphagia, unspecified; R05.9 Cough, unspecified
CPT/HCPCS: 70486; 71046; 74220

== ENCOUNTER → 2024-08-10 | Outpatient (CLI) | payer BC ==
--- NOTE | 2024-08-10 16:36 | US ---
EXAMINATION TYPE: US pelvis complete transvag DATE OF EXAM: 08/10/2024 COMPARISON: CT 2018 CLINICAL INDICATION: Female, 39 years old with history of R10.2 PELVIC AND PERINEAL PAIN; TECHNIQUE: Transvaginal (TV) and Transabdominal (TA) . Transabdominal grayscale sonographic images of the pelvis were acquired. Transvaginal sonographic im ages were medically necessary to better assess the following anatomy: ovaries Doppler imaging: Not performed. FINDINGS: Date of LMP: 2-3 weeks ago EXAM MEASUREMENTS: Uterus: 7.6 x 3.7 x 4.7 cm Endometrial Stripe: 0.9 cm Right Ovary: not seen Left Ovary: 2.7 x 1.7 x 2.2 cm 1. Uterus: anteverted, mildly heterogenous 2. Endometrium: appears wnl 3. Right Ovary: not seen due to overlying bowel gas 4. Left Ovary: 1.7cm dominant follicle 5. Bilateral Adnexa: wnl 6. Posterior cul-de-sac: free fluid Anteverted uterus without focal lesion. Endometrium is within normal limits. Right ovary is not visua lized due to overlying bowel gas. Dominant left ovarian follicle. Small amount of free fluid in the p osterior cul-de-sac. Likely physiologic. IMPRESSION: 1. No ultrasound evidence for an acute process. 2. Nonvisualization of the right ovary due to overlying bowel gas. [facility], , 08/10/2024 4:33 PM
== END | disposition home or self-care (01) ==
LOC: RADUSWWP 15:50
PROVIDERS: ATTEND Family Medicine
DX: N85.4 Malposition of uterus (principal); R10.2 Pelvic and perineal pain
CPT/HCPCS: 76830; 76856

== ENCOUNTER → 2025-01-17 | Outpatient (CLI) | payer BC ==
--- NOTE | 2025-01-18 08:26 | MM ---
Reason for Exam: Screening (asymptomatic). Patient History: Menarche at age 12. First Full-Term at age 33. Late child-bearing (after 28). Hormonal Contraceptives, from age 15 until age 29. 2021, Bilateral Implant Removal. Risk Values: Jess 5 year model risk: 0.8%. NCI Lifetime model risk: 12.4%. Tissue Density: The breasts are heterogeneously dense, which may obscure small masses. Findings: Analyzed By CAD. Right breast: There is no suspicious group of microcalcifications or new suspicious mass. Left breast: There is no suspicious group of microcalcifications or new suspicious mass. Overall Assessment: Negative, BI-RAD 1 Management: Screening Mammogram of both breasts in [address] [facility] will attempt to contact patient to return for supplemental views and ultrasound if indicated. Patient should continue monthly self-breast exams. A clinical breast exam by your physician is recommended on an annual basis. This exam should not preclude additional follow-up of suspicious palpable abnormalities. Note on Jess scores and lifetime risk: 1. A Jess score greater than 3% is considered moderate risk. If this is the case, consider specialist referral to assess eligibility for a risk reducing agent. 2. If overall lifetime risk for the development of breast cancer is 20% or higher, the patient may qualify for future screening with alternating mammogram and breast MRI. [facility], , 01/18/2025 8:17 AM. Electronically signed and approved by: Soto Dubose DO
== END | disposition home or self-care (01) ==
LOC: RADMAMWWP 16:45
PROVIDERS: ATTEND Family Medicine
DX: Z12.31 Encounter for screening mammogram for malignant neoplasm of breast (principal); R92.333 Mammographic heterogeneous density, bilateral breasts; Z92.0 Personal history of contraception; Z98.82 Breast implant status
CPT/HCPCS: 77063; 77067